=== PATIENT | female | born 1975 | race African-American/Black ===

== ENCOUNTER 2016-09-09 05:35 | Inpatient (IN) | payer BC ==
[~2016-09-09] VITALS: Ht 160 cm; Wt 72.6 kg
[2016-09-09 06:45] VITALS: BP 112/68
[2016-09-09 06:56] VITALS: BP 114/60
[2016-09-09 12:25] VITALS: BP 111/63
[2016-09-09 15:08] LABS: HEMATOCRIT 29.1 % (36.0-46.0)
[2016-09-09 15:19] LABS: MCV 71.5 FL (83-99)
[2016-09-09 15:55] VITALS: BP 116/62
[2016-09-09 19:25] VITALS: BP 125/72
[2016-09-09 23:35] VITALS: BP 127/69
[2016-09-10 03:05] VITALS: BP 111/58
[2016-09-10 07:00] VITALS: BP 115/61
[2016-09-10 07:08] LABS: HEMATOCRIT 27.7 % (36.0-46.0); MCH 21.7 PG (29.0-34.0); MCHC 30.7 G/DL (30.0-36.0); MCV 70.8 FL (83-99); MEAN PLAT.VOLUME 9.6 uM^3 (9.5-12.4); RBC DIS.WIDTH-CV 21.2 % (11.8-14.6); RBC DIS.WIDTH-SD 53.2 % (39-53); RED BLOOD COUNT 3.91 M/uL (3.80-5.20)
[2016-09-10 07:15] LABS: ANION GAP 9 MEQ/L (2-14); CHLORIDE 105 MEQ/L (99-109); GFR ESTIMATE (CALCULATED) > 59 mL/min/; GLUCOSE 92 mg/dL (70-99); SAMPLE HEMOLYSIS CHECK 0; SAMPLE ICTERIC CHECK 0; SAMPLE LIPEMIA CHECK 0; SODIUM 138 MEQ/L (136-147); UREA NITROGEN (BUN) 7 mg/dL (9-23)
[2016-09-10 07:21] LABS: PLATELET COUNT 316 K/uL (156-360); WHITE BLOOD COUNT 9.8 K/uL (4.1-10.2)
[2016-09-10 12:00] VITALS: BP 106/62
[2016-09-10 20:00] VITALS: BP 106/60
[2016-09-10 23:01] VITALS: BP 107/55
[2016-09-11 03:02] VITALS: BP 112/57
[2016-09-11 07:18] VITALS: BP 108/63
[2016-09-11] MEDS ORDERED: MOTRIN800 MG PO (08:16)
[2016-09-11] MEDS ORDERED: ENDOCET 5-3251 EACH PO (08:16)
[2016-09-11] MEDS ORDERED: FERROUS SULFAT325 MG PO (08:16)
[2016-09-11] MEDS ORDERED: COLACE100 MG PO (08:16)
== END 2016-09-11 09:42 | disposition home or self-care (01) | DRG 743 ==
LOC: 2SOUTH 05:35 → 2EASTP 12:23 → 2SOUTH 14:50 → 2EASTP 09-11 09:42
PROVIDERS: Obstetrics & Gynecology
DX: D25.2 Subserosal leiomyoma of uterus (principal); D25.0 Submucous leiomyoma of uterus; D25.1 Intramural leiomyoma of uterus; N92.0 Excessive and frequent menstruation with regular cycle; N73.6 Female pelvic peritoneal adhesions (postinfective); D50.0 Iron deficiency anemia secondary to blood loss (chronic)
CPT/HCPCS: 80048; 85014; 85018; 85027; 88302; 88307; J0131; J0330; J0690; J1100; J1170; J1885; J2270; J2405; J2710; J3010; J7120; P9016